=== PATIENT | female | born 1970 | race Caucasian/White ===

== ENCOUNTER 2017-09-24 23:26 | Emergency (ER) | payer MEDICAID, OTHER ==
[~2017-09-24] VITALS: Ht 154.9 cm; Wt 83.9 kg
--- NOTE | 2017-09-24 23:26 | NUR ---
BB FAMILY; CHEST PAIN GOING TO RIGHT ARM, PRESSURE LIKE. A/OX4 GREEK SPEAKING WITH FAMILY AT BEDSIDE. VSS NAD. WILL CONTINUE TO MONITOR FOR ANY CHANGES DURING THE SHIFT.
--- NOTE | 2017-09-24 23:27 | NUR ---
ER MD GARCIA AT BEDSIDE FOR EVAL
[2017-09-25] MEDS ORDERED: ASPIRIN 81 MG TAB.CHEW PO ONE (00:30)
[2017-09-25] MEDS ORDERED: ASPIRIN 81 MG TAB.CHEW ONE (00:41)
[2017-09-25 00:45] LABS: BASOPHILS % (AUTO) 0.2 % (0.0-2.0); EOSINOPHILS % (AUTO) 8.3 % (0.0-6.0); HEMATOCRIT 40 % (33-45); LYMPHOCYTES # (AUTO) 2.2 /CMM (0.8-4.8); LYMPHOCYTES % (AUTO) 28.5 % (20.0-44.0); MEAN CORPUSCULAR HEMOGLOBIN 26 PG (26.0-33.0); MEAN CORPUSCULAR HGB CONC 33 g/dl (31.0-36.0); MEAN CORPUSCULAR VOLUME 80 fL (82-100); MONOCYTES # (AUTO) 0.6 /CMM (0.1-1.30); MONOCYTES % (AUTO) 8.2 % (2.0-12.0); NEUTROPHILS # (AUTO) 4.2 /CMM (1.8-8.9); NEUTROPHILS % (AUTO) 54.8 % (43.0-81.0); PLATELET COUNT (AUTO) 183 /CMM (150-450); RDW COEFFICIENT OF VARIATION 13.5 (11.5-15.0); RED BLOOD CELL COUNT(AUTO) 4.97 MIL/uL (4.0-5.2); WHITE BLOOD COUNT (AUTO) 7.6 K/uL (4.3-11.0)
[2017-09-25] MEDS ORDERED: HYDROCODONE/APAP 10/325MG 1 EA TABLET ONE (00:51)
[2017-09-25] MEDS ORDERED: ONDANSETRON HCL/PF 4 MG/2 ML VIAL ONE (00:51)
[2017-09-25] MEDS ORDERED: LORAZEPAM INJ 2 MG/ML VIAL ONE (00:52)
[2017-09-25] MEDS ORDERED: ONDANSETRON HCL/PF - ER 4 MG/2 ML VIAL IV ONE (01:00)
[2017-09-25] MEDS ORDERED: LORAZEPAM INJ 2 MG/ML VIAL IV ONE (01:00)
[2017-09-25] MEDS ORDERED: HYDROCODONE/APAP 10/325MG 1 EA TABLET PO ONE (01:00)
[2017-09-25 01:03] LABS: CALCIUM, SERUM 8.5 mg/dL (8.5-10.1); CARBON DIOXIDE 24 mmol/L (21-32); CHLORIDE 103 mmol/L (98-107); CREATININE 0.8 mg/dL (0.6-1.3); GLUCOSE 119 mg/dL (74-106); POTASSIUM 3.6 mmol/L (3.5-5.1); SODIUM SERUM 135 mmol/L (136-145); TROPONIN I < 0.017 ng/mL (0.00-0.056); UREA NITROGEN, BLOOD 8 mg/dL (7-18)
[2017-09-25 01:08] LABS: ALANINE AMINOTRANSFERASE 28 U/L (12-78); ALBUMIN 3.4 g/dL (3.4-5.0); ALKALINE PHOSPHATASE 56 U/L (46-116); ASPARTATE AMINOTRANSFERASE 23 U/L (15-37); B-TYPE NATRIURETIC PEPTIDE 82 PG/ML (0-125); BILIRUBIN,TOTAL 0.4 mg/dL (0.2-1.0); TOTAL PROTEIN, SERUM 8.4 g/dL (6.4-8.2)
--- NOTE | 2017-09-25 05:11 | NUR ---
[employer] PATIENT. PER PT "ON HIS WAY"
[2017-09-25 05:12] VITALS: BP 131/81
== END 2017-09-25 05:12 | disposition home or self-care (01) ==
LOC: ER 23:30
DX: R07.89 Other chest pain (principal); M62.830 Muscle spasm of back; Z90.710 Acquired absence of both cervix and uterus
CPT/HCPCS: 36415; 71045-TC; 80048-TC; 80076-TC; 83880; 84484-TC; 84703-TC; 85025-TC; A4606; J2060; J2405; Z7610

== ENCOUNTER 2021-02-05 10:39 | Emergency (ER) | payer OTHER ==
[~2021-02-05] VITALS: Ht 154.9 cm; Wt 59.0 kg
--- NOTE | 2021-02-05 10:45 | NUR ---
patient came in to the er c/o left facial drooping and numbness. on room air, connected to the monitor and pulse ox. Kept comfortable, will continue to monitor accordingly.
[2021-02-05] MEDS ORDERED: PRED50TA PO (10:52)
[2021-02-05] MEDS ORDERED: VALA100026 PO (10:52)
[2021-02-05 10:59] VITALS: BP 120/71
--- NOTE | 2021-02-05 11:01 | NUR ---
Patient discharged to home in stable condition. Written and verbal after care instructions given. Patient verbalizes understanding of instruction.
== END 2021-02-05 11:00 | disposition home or self-care (01) ==
LOC: ER 10:39
DX: G51.0 Bell's palsy (principal); Z98.890 Other specified postprocedural states; Z79.899 Other long term (current) drug therapy

== ENCOUNTER 2021-02-11 13:46 | Emergency (ER) | payer OTHER ==
[~2021-02-11] VITALS: Ht 154.9 cm; Wt 59.0 kg
[~2021-02-11 13:46] MED LIST: PRED50TA PO; VALA100026 PO
[2021-02-11 15:57] VITALS: BP 140/80
[2021-02-11] MEDS ORDERED: PRED20TA PO (16:24)
[2021-02-11] MEDS ORDERED: CARB-183 OP (16:24)
--- NOTE | 2021-02-11 16:43 | NUR ---
Patient discharged to home in stable condition. Written and verbal after care instructions given. Patient verbalizes understanding of instruction.
== END 2021-02-11 16:44 | disposition home or self-care (01) ==
LOC: ER 14:20
DX: G51.0 Bell's palsy (principal); Z98.890 Other specified postprocedural states; Z79.899 Other long term (current) drug therapy

== ENCOUNTER 2022-04-16 20:38 | Emergency (ER) | payer OTHER ==
[~2022-04-16] VITALS: Ht 157.5 cm; Wt 63.5 kg
[~2022-04-16 20:38] MED LIST changes: +CARB-183 OP; +PRED20TA PO
--- NOTE | 2022-04-16 21:00 | NUR ---
BIB DAUGHTER FOR C/O SYNCOPAL EPISODE X 1 HOUR SPICE BLENDER + COUGH, + HITTING THE HEAD. AMBULATORY, PLACED IN BED, BREATHING EVEN AND UNLABORED SATURATING AT 98%RA.
--- NOTE | 2022-04-16 21:25 | NUR ---
BLOOD DRAWN AND SENT TO LAB
[2022-04-16] MEDS ORDERED: IV NS 0.9% 1,000 ML BAG IV ONE (21:30)
--- NOTE | 2022-04-16 21:46 | NUR ---
PT TAKEN TO CT VIA GERMAINE
[2022-04-16 21:52] LABS: BASOPHILS % (AUTO) 0.4 % (0.0-2.0); EOSINOPHILS % (AUTO) 3.8 % (0.0-6.0); HEMATOCRIT 38 % (33-45); HEMOGLOBIN 11.9 g/dL (11.5-14.8); LYMPHOCYTES % (AUTO) 17.8 % (20.0-44.0); MEAN CORPUSCULAR HGB CONC 32 g/dl (31.0-36.0); MEAN CORPUSCULAR VOLUME 81 fL (82-100); MONOCYTES # (AUTO) 0.6 K/uL (0.1-1.30); MONOCYTES % (AUTO) 9.9 % (2.0-12.0); NEUTROPHILS # (AUTO) 3.8 K/uL (1.8-8.9); NEUTROPHILS % (AUTO) 68.1 % (43.0-81.0); PLATELET COUNT (AUTO) 155 K/uL (150-450); RED BLOOD CELL COUNT(AUTO) 4.67 MIL/uL (4.0-5.2); WHITE BLOOD COUNT (AUTO) 5.6 K/uL (4.3-11.0)
[2022-04-16] MEDS ORDERED: IV NS 0.9% 250 ML IV ONE (21:55)
[2022-04-16] MEDS ORDERED: IOHEXOL-300 100 ML VIAL IV ONE (21:55)
[2022-04-16] MEDS ORDERED: CT SWABBABLE VALVE TRANS SET 1 EA INFUS.SET MC ONE (21:55)
[2022-04-16 22:45] LABS: ALANINE AMINOTRANSFERASE 36 U/L (12-78); ALBUMIN 3.3 g/dL (3.4-5.0); ALKALINE PHOSPHATASE 68 U/L (46-116); ASPARTATE AMINOTRANSFERASE 33 U/L (15-37); BILIRUBIN,DIRECT 0.1 mg/dL (0.0-0.2); BILIRUBIN,TOTAL 0.1 mg/dL (0.2-1.0); CALCIUM, SERUM 8.6 mg/dL (8.5-10.1); CARBON DIOXIDE 28 mmol/L (21-32); CHLORIDE 103 mmol/L (98-107); CREATININE 0.9 mg/dL (0.6-1.3); GLUCOSE 122 mg/dL (74-106); POTASSIUM 3.5 mmol/L (3.5-5.1); SODIUM SERUM 138 mmol/L (136-145); TOTAL PROTEIN, SERUM 7.5 g/dL (6.4-8.2); UREA NITROGEN, BLOOD 15 mg/dL (7-18)
[2022-04-17] MEDS ORDERED: AMOX500C2 PO (00:13)
[2022-04-17] MEDS ORDERED: AMOXICILLIN TRIHYDRATE 250 MG CAPSULE ONE (00:22)
[2022-04-17] MEDS ORDERED: AMOXICILLIN TRIHYDRATE 500 MG CAPSULE PO ONE (00:30)
--- NOTE | 2022-04-17 00:33 | NUR ---
Patient discharged to home in stable condition. Written and verbal after care instructions given. Patient verbalizes understanding of instruction. IV removed. Catheter intact and site benign. Pressure and 4x4 applied to site. No bleeding noted. pt ambulatory with a steady gait
[2022-04-17 00:34] VITALS: BP 112/72
== END 2022-04-17 00:34 | disposition home or self-care (01) ==
LOC: ER 20:41
DX: J18.9 Pneumonia, unspecified organism (principal); R55 Syncope and collapse; Z90.710 Acquired absence of both cervix and uterus; Z79.899 Other long term (current) drug therapy
CPT/HCPCS: 99285; 71260; 96360; 93005; 70450; 85025; 80048; 80076; 36415; 84484 ×2; J7050; Q9967